=== PATIENT | male | born 1995 | race Caucasian/White ===

== ENCOUNTER 2019-06-24 16:53 | Emergency (ER) | payer BC ==
[2019-06-24 17:20] VITALS: BP 125/80; PULSE 80
[2019-06-24] MEDS ORDERED: Lidocaine 1% 10 ML MDV INJECT ONE (17:47)
--- NOTE | 2019-06-24 18:49 | CR ---
INDICATION: Crush injury. TECHNIQUE: Three views right hand. IMPRESSION: Hairline longitudinal fracture of the distal phalanx 3rd finger approaches but does not definitively enter the PIP joint. Irregular soft tissues along the dorsal distal finger likely soft tissue injury related. Dictated by Raffi Skelton MD @ Jun 24 2019 6:46PM Signed by Dr. Raffi Skelton @ Jun 24 2019 6:48PM
[2019-06-24] MEDS ORDERED: Clindamycin Phosphate in D5W 900 MG in Premix Bag 1 BAG IV ONE ×2 (19:06)
--- NOTE | 2019-06-24 19:56 | EDM.PDOC ---
ED HPI GENERAL MEDICAL PROBLEM - General Chief Complaint: Laceration Stated Complaint: FINGER INJURY Time Seen by Provider: 06/24/19 17:23 Source of Information: Reports: Patient History Limitations: Reports: No Limitations - History of Present Illness INITIAL COMMENTS - FREE TEXT/NARRATIVE: HISTORY AND PHYSICAL: History of present illness: Patient is a 24-year-old male who presents to the ED today with concern of right hand finger injuries that occurred just prior to arrival to the ED. Patient states he was at work when a lift gate fell on his second and third fingers. Patient states he has been fully able to move the hand since but does have pain at the end of his fingers. Patient states he is up-to-date on vaccinations including tetanus. Patient denies any other symptoms or concerns. Patient denies fever, chills, chest pain, shortness of breath, or cough. Denies headache, neck stiff ness, change in vision, syncope, or near syncope. Denies nausea, vomiting, abdominal pain, diarrhea, constipation, or dysuria. Has not noted any blood in urine or stool. Patient has been eating and drinking appropriately. Review of systems: As per history of present illness and below otherwise all systems reviewed and negative. Past medical history: As per history of present illness and as reviewed below otherwise noncontributory. Surgical history: As per history of present illness and as reviewed below otherwise noncontributory. Social history: See social history for further information Family history: As per history of present illness and as reviewed below otherwise noncontributory. Physical exam: General: Patient is alert, oriented, and in no acute distress. Patient sitting comfortably on exam table. HEENT: Atraumatic, normocephalic, pupils equal and reactive bilaterally, negative for conjunctival pallor or scleral icterus, mucous membranes moist, TMs normal bilaterally, throat clear, neck supple, nontender, trachea midline. No drooling or trismus noted. No meningeal signs. No hot potato voice noted. Lungs: Clear to auscultation, breath sounds equal bilaterally, chest nontender. Heart: S1S2, regular rate and rhythm without overt murmur Abdomen: Soft, nondistended, nontender. Negative for masses or hepatosplenomegaly. Negative for costovertebral tenderness. Pelvis: Stable nontender. Genitourinary: Deferred. Rectal: Deferred. Skin: Intact, warm, dry. No lesions or rashes noted. Extremities: Negative for cords or calf pain. Neurovascular unremarkable. Patient has full range of motion of complete right hand and digits. Radial pulses grossly intact of the right upper extremity with capillary refill less than 2 seconds. Patient has a 1 cm irregular laceration of the second distal digit of the right hand at the base of the nail-bed and the nail-bed is partially avulsed but remainder of nail-bed intact. The distal third digit of the right hand has a 2 cm irregular laceration that involves the base of the nailbed, with partial avulsion of the nail bed, and does wrap around to the palm side of the finger. Hand has dried blood but not actively bleeding. Neuro: Awake, alert, oriented. Cranial nerves II through XII unremarkable. Cerebellum unremarkable. Motor and sensory unremarkable throughout. Exam nonfocal. Notes: Dr. Park, Hand specialist in [place] at [facility], consulted on patient and thoroughly discussed patient's case. He states to have patient call Thursday to the clinic and patient will be seen Thursday. Voices understanding and is agreeable to plan of care. Denies any further questions or concerns at this time. Diagnostics: hand XR Therapeutics: Cleocin, Sutures, Lidocaine, Finger splint Prescription: Clindamycin Impression: Open distal phalanx fracture, 3rd digit, right Finger lacerations, 2nd and 3rd digit Partial nail avulsion, 2nd digit, 3rd digit Plan: 1. Take medication as prescribed. You can alternate ibuprofen and Tylenol as directed for pain and discomfort. 2. Follow-up with a hand specialist as discussed. The number has been provided above for you to call and set up an appointment time. 3. Return to the ED as needed and as discussed. fingers R hand Pain Score (Numeric/FACES): 8 - Related Data Allergies Allergy/AdvReac Type Severity Reaction Status Date / Time amoxicillin trihydrate Allergy Hives Verified 06/24/19 17:20 [From Augmentin] cefdinir [Cefdinir] Allergy Hives Verified 06/24/19 17:20 potassium clavulanate Allergy Hives Verified 06/24/19 17:20 [From Augmentin] Home Meds: Home Meds . [No Known Home Meds] 06/24/19 [History] Past Medical History - Past Health History Medical/Surgical History: Denies Medical/Surgical History - Infectious Disease History Infectious Disease History: Reports: Chicken Pox - Past Surgical History Other HEENT Surgeries/Procedures: sinus surgery Social & Family History - Tobacco Use Years of Tobacco use: 8 - Recreational Drug Use Recreational Drug Use: No ED ROS GENERAL - Review of Systems Review Of Systems: Comprehensive ROS is negative, except as noted in HPI. ED EXAM, SKIN/RASH Exam: See Below (see dictation) ED SKIN PROCEDURES - Laceration/Wound Repair Distal Digit - 2nd (Index) Appearance: Subcutaneous, Irregular Distal NVT: Neuro & Vascular Intact, No Tendon Injury Local Anesthesia - Lidocaine (Xylocaine): 1% Plain Local Anesthetic Volume: 5cc Skin Prep: Chlorhexidine (Hibiciens), Saline Saline Irrigation (cc's): 100 Exploration/Debridement/Repair: Wound Explored, In a Bloodless Field, Explored to Base, No Foreign Material Found Closed with: Sutures Lac/Wound length In cm: 1 Suture Size: 4-0 # of Sutures: 2 Suture Type: Silk, Interrupted Drain Placement: No Sterile Dressing Applied: Nurse Tetanus Status Addressed: Yes (up to date) Complications: No Distal Digit - 3rd (Middle) Appearance: Subcutaneous, Irregular, Heavily Contaminated Distal NVT: Neuro & Vascular Intact, No Tendon Injury Local Anesthesia - Lidocaine (Xylocaine): 1% Plain Local Anesthetic Volume: Other (10) Skin Prep: Chlorhexidine (Hibiciens) Saline Irrigation (cc's): 150 Exploration/Debridement/Repair: Wound Explored, In a Bloodless Field, Explored to Base, No Foreign Material Found Closed with: Sutures Lac/Wound length In cm: 2 Suture Size: 4-0 # of Sutures: 7 Suture Type: Silk, Interrupted Drain Placement: No Sterile Dressing Applied: Nurse Tetanus Status Addressed: Yes (up to date) Complications: No Course - Vital Signs Last Recorded V/S: Last Vital Signs Temp 98.3 F 06/24/19 17:17 Pulse 80 06/24/19 17:17 Resp 18 06/24/19 17:17 BP 125/80 06/24/19 17:17 Pulse Ox 98 06/24/19 17:17 - Orders/Labs/Meds Orders: Active Orders 24 hr Category Date Time Status DME for Discharge [COMM] Stat Oth 06/24/19 20:02 Ordered Meds: Medications Discontinued Medications Generic Name Dose Route Start Last Admin Trade Name Freq PRN Reason Stop Dose Admin Clindamycin Phosphate 900 mg/ 50 mls @ 100 mls/hr 06/24/19 19:06 06/24/19 19: 28 Premix IV 06/24/19 19:35 100 mls/hr ONETIME ONE Administration Lidocaine HCl 10 ml 06/24/19 17:47 06/24/19 18:10 Xylocaine 1% INJECT 06/24/19 17:48 10 ml ONETIME ONE Administration Lidocaine HCl Confirm 06/24/19 18:06 06/24/19 18:44 Xylocaine-Mpf 1% Administered 06/24/19 18:07 Not Given Dose 10 ml .ROUTE .STK-MED ONE Departure - Departure Time of Disposition: 20:08 Disposition: Home, Self-Care 01 Clinical Impression: Finger laceration Qualifiers: Encounter type: initial encounter Finger: middle finger Damage to nail status: with damage Foreign body presence: without foreign body Laterality: right Qualified Code(s): S61.312A - Laceration without foreign body of right middle finger with damage to nail, initial encounter Phalanx, distal fracture of finger Qualifiers: Encounter type: initial encounter Finger: index finger Fracture type: open Fracture alignment: nondisplaced Laterality: right Qualified Code(s): S62.660B - Nondisplaced fracture of distal phalanx of right index finger, initial encounter for open fracture - Discharge Information Referrals: PCP,None [Primary Care Provider] - Forms: ED Department Discharge Additional Instructions: The following information is given to patients seen in the emergency department who are being discharged to home. This information is to outline your options for follow-up care. We provide all patients seen in our emergency department with a follow-up referral. The need for follow-up, as well as the timing and circumstances, are variable depending upon the specifics of your emergency department visit. If you don't have a primary care physician on staff, we will provide you with a referral. We always advise you to contact your personal physician following an emergency department visit to inform them of the circumstance of the visit and for follow-up with them and/or the need for any referrals to a consulting specialist. The emergency department will also refer you to a specialist when appropriate. This referral assures that you have the opportunity for follow-up care with a specialist. All of these measure are taken in an effort to provide you with optimal care, which includes your follow-up. Under all circumstances we always encourage you to contact your private physician who remains a resource for coordinating your care. When calling for follow-up care, please make the office aware that this follow-up is from your recent emergency room visit. If for any reason you are refused follow-up, please contact the [facility] at and asked to speak to the emergency department charge nurse. [facility] [address] [place] [id number] [facility] [address] [place] [id number] Bubba Park MD. Hand Specialist [place] [address] [place] [address] 1. Take medication as prescribed. You can alternate ibuprofen and Tylenol as directed for pain and discomfort. 2. Follow-up with a hand specialist as discussed. The number has been provided above for you to call and set up an appointment time. Call Thursday at 8am and establish appointment time for Thursday. 3. Return to the ED as needed and as discussed. Sepsis Event Note - Evaluation Sepsis Screening Result: No Definite Risk - Focused Exam Vital Signs: Vital Signs Temp Pulse Resp BP Pulse Ox 06/24/19 17:17 98.3 F 80 18 125/80 98 Date Exam was Performed: 06/24/19 Time Exam was Performed: 20:06 - My Orders Last 24 Hours: My Active Orders 06/24/19 20:02 DME for Discharge [COMM] Stat - Assessment/Plan Last 24 Hours: My Active Orders 06/24/19 20:02 DME for Discharge [COMM] Stat
[2019-06-24] MEDS ORDERED: Bacitracin Oint 1 GM U/D Packet ONE (20:07)
[2019-06-25] MEDS ORDERED: Bacitracin Oint 1 GM U/D Packet TOP ONE (04:18)
== END 2019-06-24 20:30 | disposition home or self-care (01) ==
LOC: MW.ED 16:53
DX: S62.660B Nondisplaced fracture of distal phalanx of right index finger, initial encounter for open fracture (principal); Z88.1 Allergy status to other antibiotic agents; Z88.8 Allergy status to other drugs, medicaments and biological substances; W20.8XXA Other cause of strike by thrown, projected or falling object, initial encounter; Y99.0 Civilian activity done for income or pay
CPT/HCPCS: 12002; 73130; 96365; 99283; J2001; J3490